=== PATIENT | male | born 1945 | race Caucasian/White ===

== ENCOUNTER 2023-03-11 11:52 | Outpatient (NON) | payer MEDICARE, SELFPAY | END 2023-03-11 11:53 | disposition home or self-care (01) | LOC: ANHLAB 03-13 11:55 | PROVIDERS: PCP Internal Medicine; Visit Provider Nurse Practitioner | DX: L57.0 Actinic keratosis (principal); L57.8 Other skin changes due to chronic exposure to nonionizing radiation | CPT/HCPCS: 88305 ==